=== PATIENT | female | born 1950 | race Caucasian/White ===

== ENCOUNTER 2020-01-20 07:05 | Day surgery (SDC) | payer MEDICARE ==
[~2020-01-20] VITALS: Ht 162.6 cm; Wt 73.5 kg
[~2020-01-20 07:05] MED LIST: IMITREX100 MG PO; LEVOTHYROXINE25 MCG PO; LISINOPRIL10 MG PO; NORTRIPTYLINE H50 MG PO
--- NOTE | 2020-01-20 10:16 | OR ---
[facility] [address], [place] [address] Signed DATE OF OPERATION: 01/20/2020 SURGEON: Bettina Brandt MD PREOPERATIVE DIAGNOSIS: Maternal uncle with colon cancer in his late 60s or early 70s. POSTOPERATIVE DIAGNOSES: 1. Minimal sigmoid diverticulosis. 2. Minimal to moderate internal hemorrhoids. PROCEDURE: Colonoscopy without biopsy. ESTIMATED BLOOD LOSS: None. INDICATIONS: Ingris is a 69-year-old female, asked to see me for her initial colonoscopy. 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 She is now back in [place], [place]. She has never had a previous colonoscopy. She has no lower GI complaints. We know her maternal uncle had colon cancer somewhere in late 60s or early 70s. He then of old age at age 89. She remembers he had his colon surgery, but cannot remember if he had chemotherapy radiation. In the office, I gave Ingris a pamphlet on colorectal polyps and cancer. We looked at that in detail. She understands the nature of the colonoscopy along with its risks including, but not limited to gas bloating, crampy abdominal pain, bleeding, perforation requiring surgery, and missed diagnosis. She understands that with a personal family history, we gently have patients come every 5 years for colonoscopies. She also understands the need for IV conscious sedation. She had expressed understanding and wished to proceed. DESCRIPTION OF PROCEDURE: Ingris was taken into our endoscopy suite and placed in the left lateral decubitus position. She was given a total of 7 mg of Versed and 125 mcg of fentanyl to cover the case. A digital rectal exam was performed and this was unremarkable. The adult colonoscope was introduced and advanced all around into the cecum under direct visualization of camera without difficulty. Her prep was good. The scope was slowly withdrawn. We could easily see the appendiceal orifice and the ileocecal valve. She had a few diverticula in the sigmoid colon. They were moderate in size, few in number, and scattered about. There were no polyps. The rectum was unremarkable. Upon Electronically Signed By: BETTINA BRANDT MD 01/20/[address] [facility] PATIENT NAME: INGRIS RIVERO OPERATIVE REPORT DATE OF : 46 REPORT #: [id number] PHYSICIAN: BETTINA BRANDT MD PCP: JANN CORBETT MD REPORT IS CONFIDENTIAL AND NOT TO BE RELEASED WITHOUT AUTHORIZATION [facility] [address], [place] [address] Signed retroflexion of the scope, she has a standard minimal to moderate internal hemorrhoid columns. After this, the gas was suctioned out. The colonoscope removed. Ingris tolerated the procedure quite well. RECOMMENDATIONS: Ingris can follow up in 5 years for a repeat colonoscopy. MD LUCIA Denton/DCL /[id number] cc: MD Jann Denton MD Copies: BETTINA BRANDT MD ~ Electronically Signed By: BETTINA BRANDT MD 01/20/20 1016 PATIENT NAME: INGRIS RIVERO OPERATIVE REPORT DATE OF : 46 REPORT #: [id number] PHYSICIAN: BETTINA BRANDT MD PCP: JANN CORBETT MD REPORT IS CONFIDENTIAL AND NOT TO BE RELEASED WITHOUT AUTHORIZATION
== END 2020-01-20 10:15 | disposition home or self-care (01) ==
LOC: DS 07:05 → OPS 07:05
PROVIDERS: Colon & Rectal Surgery
PROC: 0DJD8ZZ Inspection of Lower Intestinal Tract, Via Natural or Artificial Opening Endoscopic (ICD-10-PCS; principal; 2020-01-20 08:15)
DX: Z12.11 Encounter for screening for malignant neoplasm of colon (principal); K64.8 Other hemorrhoids; K57.30 Diverticulosis of large intestine without perforation or abscess without bleeding; Z80.0 Family history of malignant neoplasm of digestive organs; Z79.899 Other long term (current) drug therapy
CPT/HCPCS: G0105; 99153; G0500; J2250; J3010; J7121